=== PATIENT | male | born 1990 | race Caucasian/White ===

== ENCOUNTER 2017-02-10 17:59 | Emergency (ER) | payer MEDICAID, OTHER ==
--- NOTE | 2017-02-10 19:28 | UC ---
Throat Pain/Nasal Sherman HPI - HPI Summary HPI Summary: 26 year old male with sore throat. Sore throat for 3 days, runny/ stuffy nose. Concern for strep . 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 [ End ] - History of Current Complaint Chief Complaint: UCRespiratory Stated Complaint: SORE THROAT Time Seen by Provider: 02/10/17 19:21 Hx Obtained From: Patient Onset/Duration: Sudden Onset Cough: Nonproductive - Allergies/Home Medications Allergies/Adverse Reactions: Allergies Allergy/AdvReac Type Severity Reaction Status Date / Time Amoxicillin Allergy Unknown Verified 02/10/17 19:06 Reaction Details Erythromycin Allergy Unknown Verified 02/10/17 19:06 Reaction Details Penicillins Allergy Unknown Verified 02/10/17 19:06 Reaction Details Home Medications: Home Medications Dextromethorphan-Phenylephrine [Vicks Dayquil Cold & Flu] 2 cap PO ONCE PRN [History Confirmed 02/10/17] PMH/Surg Hx/FS Hx/Imm Hx Previously Healthy: Yes - Surgical History Surgical History: Yes Surgery Procedure, Year, and Place: stomach to remove corrosive solution at 18 mos - Family History Known Family History: Positive: None - Social History Occupation: Employed Full-time Lives: With Family Alcohol Use: None Substance Use Type: None Smoking Status (MU): Never Smoked Tobacco Review of Systems ENT: Sore Throat, Ear Ache, Nasal Discharge Is Patient Immunocompromised?: No All Other Systems Reviewed And Are Negative: Yes Physical Exam Triage Information Reviewed: Yes Appearance: Well-Appearing, No Pain Distress, Well-Nourished Vital Signs: Initial Vital Signs Temp 97.8 F 02/10/17 18:59 Pulse 59 02/10/17 18:59 Resp 18 02/10/17 18:59 BP 114/74 02/10/17 18:59 Pulse Ox 100 02/10/17 18:59 Vital Signs Reviewed: Yes Eye Exam: Normal ENT Exam: Normal ENT: Positive: Pharyngeal erythema, Nasal congestion, TMs normal. Negative: Tonsillar swelling, Tonsillar exudate Dental Exam: Normal Neck exam: Normal Neck: Positive: 1 Respiratory Exam: Normal Cardiovascular Exam: Normal Musculoskeletal Exam: Normal Neurological Exam: Normal Psychological Exam: Normal Skin Exam: Normal Throat Pain/Nasal Course/Dx - Course Course Of Treatment: neg strep == try magic mouthwash. RTO if any concerns Viral at this time - Differential Dx/Diagnosis Differential Diagnosis/HQI/PQRI: Otitis Media, Pharyngitis, Sinusitis, Tonsillitis Provider Diagnoses: Pharyngitis Discharge - Discharge Plan Condition: Good Disposition: HOME Prescriptions: Magic Mouth Was-MARGI/MAAL/LIDO* 5 ml SWISH SWAL QID #120 ml Patient Education Materials: Pharyngitis (ED) Referrals: Gabby Bess [Primary Care Provider] - 4 Days Additional Instructions: You had negative strep testing today
== END 2017-02-10 19:38 | disposition home or self-care (01) ==
LOC: UCCORT 17:59
DX: J02.9 Acute pharyngitis, unspecified (principal); Z88.1 Allergy status to other antibiotic agents; Z88.0 Allergy status to penicillin
CPT/HCPCS: 87651; 99202; G0463